=== PATIENT | male | born 1965 | race Two or more races ===

== ENCOUNTER 2023-04-19 08:06 | Emergency (ER) | payer MEDICAID ==
[~2023-04-19] VITALS: Ht 170.2 cm; Wt 121.1 kg
[2023-04-19 08:45] LABS: Basophils # (auto) 0 10 ^3/uL (0-0.2); Basophils % (auto) 0.4 % (0.0-2.0); Eosinophils # (auto) 0.5 10 ^3/uL (0-0.8); Eosinophils % (auto) 4.5 % (0.0-7.0); Hematocrit 46.6 % (41.0-53.0); Hemoglobin 15.4 g/dL (13.5-17.5); Lymphocytes % (auto) 37.4 % (10.0-50.0); Mean Corpuscular Hemoglobin 28.9 pg (28.0-32.0); Mean Corpuscular Hgb Conc. 33.1 g/dL (32.0-36.0); Mean Corpuscular Volume 87.4 fL (80.0-100.0); Monocytes # (auto) 0.6 10 ^3/uL (0-1.3); Monocytes % (auto) 6.1 % (0.0-12.0); Neutrophils # (auto) 5.5 10 ^3/uL (1.6-8.6); Neutrophils % (auto) 51.6 % (37.0-80.0); Nucleated Red Blood Cells % 0.3 %; Red Blood Cells 5.33 10^6/uL (4.5-5.90); Red Cell Distribution Width 13.3 % (11.8-14.3); White Blood Cell 10.6 10^3/uL (4.4-10.8)
[2023-04-19 08:48] LABS: Alanine Aminotransferase 32 U/L (7-40); Albumin 4.5 g/dL (3.2-4.8); Alkaline Phosphatase 76 U/L (46-116); Anion Gap 6 (5-15); Aspartate Aminotransferase 34 U/L (13-40); BUN/Creatinine Ratio 18.3 (10.0-20.0); Blood Urea Nitrogen 15 mg/dL (9-23); Calcium 9.6 mg/dL (8.5-10.1); Carbon Dioxide 26 mmol/L (20-30); Chloride 106 mmol/L (98-107); Glucose 137 mg/dL (74-106); Potassium 4.6 mmol/L (3.5-5.1); Sodium 138 mmol/L (136-145)
[2023-04-19 08:49] LABS: Bilirubin, Total 0.4 mg/dL (0.2-1.0); Total Protein 6.6 g/dL (5.7-8.2)
[2023-04-19 08:56] LABS: INR 1.01 (0.9-1.15); Partial Thromboplastin Time 27.4 SEC (24.5-34.5); Prothrombin Time 10.6 sec (9.3-11.8)
[2023-04-19] MEDS: IOHEXOL 350 MG/ML 100ML IJ ONE ×2 (10:33→10:56)
[2023-04-19] MEDS ORDERED: NAPR-1334 PO (12:03)
[2023-04-19 12:20] VITALS: BP 138/80; PULSE 75; RESP 18; TEMP 97.8; O2SAT 96
== END 2023-04-19 12:22 | disposition home or self-care (01) ==
LOC: ER 08:06
DX: R07.89 Other chest pain (principal); G89.29 Other chronic pain; M54.9 Dorsalgia, unspecified; F17.210 Nicotine dependence, cigarettes, uncomplicated; Z90.49 Acquired absence of other specified parts of digestive tract
CPT/HCPCS: 36415; 71045; 71275; 80053; 83880; 84484; 85025; 85379; 85610; 85730; 93005; 99285; Q9967

== ENCOUNTER 2024-03-29 11:09 | Emergency (ER) | payer MEDICAID ==
[~2024-03-29] VITALS: Ht 180.3 cm; Wt 122.0 kg
[~2024-03-29 11:09] MED LIST: NAPR-1335 PO
--- NOTE | 2024-03-29 11:25 | ED.PDOC ---
History of Present Illness HPI Comments 58-year-old male with PMHx Spinal Surgery brought in by EMS presents with a chief complaint of back pain. Patient states that he is currently experiencing 10/10 back pain at this time. Patient mentions that he was attempting to get up from his bed and that triggered the back pain. Patient mentions that his surgery was done by Dr. Ijeoma nichole 6 months ago. Patient reports that he has not had any physical therapy since having back surgery. Patient mentions that the pain radiates down his left leg and his at home pain medications are not helping with the pain. Time Seen by MD: 11:05 Primary Care Provider: ALBAN HERNANDEZ Reviewed Notes: Medications, Allergies Allergies: Coded Allergies: NO KNOWN ALLERGIES (Unverified , 05/30/15) Home Meds Active Scripts Naproxen Sodium (Naproxen) 220 Mg Tab, 220 MG PO BID for 7 Days, #14 TAB Prov:ARYAN PANIAGUA MD 04/19/23 Information Source: Patient, Emergency Med Personnel Mode of Arrival: EMS Severity: Moderate Timing: Hours Duration: Since onset Prehospital treatment: None Past Medical History PAST MEDICAL HISTORY: Denies Surgical History: Appendectomy, Hernia Repair Family History Family History: Unknown Social History Smoker: Cigarettes Alcohol: Denies ETOH Use Drugs: Denies Drug Use Lives In: Home Constitutional: denies: chills, diaphoresis, fatigue, fever, malaise, sweats, weakness, others EENTM: denies: blurred vision, double vision, ear bleeding, ear discharge, ear drainage, ear pain, ear ringing, eye pain, eye redness, hearing loss, mouth pain, mouth swelling, nasal discharge, nose bleeding, nose congestion, nose pain, photophobia, tearing, throat pain, throat swelling, voice changes, others Respiratory: denies: cough, hemoptysis, orthopnea, SOB at rest, shortness of breath, SOB with excertion, stridor, wheezing, others Cardiovascular: denies: chest pain, dizzy spells, diaphoresis, Dyspnea on exertion, edema, irregular heart beat, left arm pain, lightheadedness, palpitations, PND, syncope, others Gastrointestinal: denies: abdomen distended, abdominal pain, blood streaked bowels, constipated, diarrhea, dysphagia, difficulty swallowing, hematemesis, melena, nausea, poor appetite, poor fluid intake, rectal bleeding, rectal pain, vomiting, others Genitourinary: denies: burning, dysuria, flank pain, frequency, hematuria, incontinence, penile discharge, penile sore, pain, testicle pain, testicle swelling, urgency, others Neurological: denies: dizziness, fainting, headache, left sided numbness, left sided weakness, numbness, paresthesia, pre-existing deficit, right sided numbness, right sided weakness, seizure, speech problems, tingling, tremors, weakness, others Musculoskeletal: reports: back pain; denies: gout, joint pain, joint swelling, muscle pain, muscle stiffness, neck pain, others Integumetry: denies: bruises, change in color, change in hair/nails, dryness, laceration, lesions, lumps, rash, wounds, others Allergic/Immunocompromised: denies: Difficulty Healing, Frequent Infections, Hives, Itching, others Hematologic/Lymphatic: denies: anemia, blood clots, easy bleeding, easy bruising, swollen glands, others Endocrine: denies: excessive hunger, excessive sweating, excessive thirst, excessive urination, flushing, intolerance to cold, intolerance to heat, unexplained weight gain, unexplained weight loss, others Psychiatric: denies: anxiety, bipolar disorder, depression, hopeless, panic disorder, schizophrenia, sleepless, suicidal, others All Other Systems: Reviewed and Negative Physical Exam General Appearance: Mild Distress HEENT: Normal ENT Inspection, Pharynx Normal, TMs Normal Neck: Full Range of Motion, Non-Tender, Normal, Normal Inspection Respiratory: Chest Non-Tender, Lungs Clear, No Accessory Muscle Use, No Respiratory Distress, Normal Breath Sounds Cardiovascular: No Edema, No JVD, No Murmur, No Gallop, Normal Peripheral Pulses, Regular Rate/Rhythm Breast Exam: Deferred Gastrointestinal: No Organomegaly, Non Tender, No Pulsatile Mass, Normal Bowel Sounds, Soft Genitalia: Deferred Pelvic: Deferred Rectal: Deferred Extremities: No calf tenderness, Normal capillary refill, Normal inspection, Normal range of motion, Non-tender, No pedal edema Musculoskeletal : Location: Bilateral Extremity Location: Back Apperance: Limited ROM, Tenderness: Mild Neurologic: Alert, garage mechanic II-XII nml as Tested, No Motor Deficits, Normal Affect, Normal Mood, No Sensory Deficits Cerebellar Function: Normal Reflexes: Normal Skin: Dry, Normal Color, Warm Lymphatic: No Adenopathy Was a procedure done? Was a procedure done?: No Differential Dx Considerations may include: LS strain, radiculopathy X-Ray, Labs, Meds, VS Vital Signs Date Time Temp Pulse Resp B/P (MAP) Pulse Ox O2 Delivery O2 Flow Rate FiO2 03/29/24 11:27 98.0 93 24 137/88 (104) 100 Lumbar Spine X-Ray Impression: L6-S1 lumbar spinal hardware and disc spacer appear intact. No acute fracture or dislocation of the lumbar spine. At this time, the patient was being discharged The patient will follow up primary care doctor The patient will return to the emergency department's the condition worsens The patient will continue taking his medication for pain Images Reviewed?: Images reviewed and evaluated by me Time of 1ST Reevaluation: 11:35 Reevaluation 1ST: Unchanged Patient Education/Counseling: Diagnosis, Treatment, Prognosis, Need For Follow Up Family Education/Counseling: Diagnosis, Treatment, Prognosis, Need For Follow Up Departure 1 Departure Time of Disposition: 12:13 Impression: Primary Impression: Lumbar radiculopathy Disposition: 01 HOME / SELF CARE / HOMELESS Condition: Fair Discharged With: Self Critical Care Note Critical Care Time?: No Stability Stability form required: No Heart Score Heart Score: Heart Score Response (Comments) Value History N/A 0 EKG N/A 0 Age N/A 0 Risk Factors N/A 0 Troponin N/A 0 Total 0 I personally scribed for GABBY BLANCO MD ([email or web address]) on 03/29/24 at 11:25. Electronically submitted by Hal Moreno ([email or web address]). I personally scribed for GABBY BLANCO MD ([email or web address]) on 03/29/24 at 12:07. Electronically submitted by Hal Moreno ([email or web address]). GABBY BLANCO MD Mar 29, 2024 11:25
--- NOTE | 2024-03-29 11:55 | DVH ---
XY LUMBAR SPINE 3 VIEW, HISTORY: pain COMPARISON: None TECHNICAL DATA: Frontal and lateral views were obtained of the lumbar spine . FINDINGS: There are 6 lumbar type vertebral bodies. L6-S1 lumbar spinal hardware and disc spacer appear intact. Lumbar curvature is within normal limits. There is no spondylolisthesis. Vertebral body heights are maintained. Disk heights are normal. The facet joints appear normal. The sacroiliac joints are symmet luz elena. Paraspinal soft tissues are within normal limits. IMPRESSION: L6-S1 lumbar spinal hardware and disc spacer appear intact. No acute fracture or dislocation of the lumbar spine.
[2024-03-29 12:20] VITALS: TEMP 97.7; O2SAT 96
[2024-03-29] MEDS: ONDANSETRON HCL 4 MG/2 ML VIAL IV ONE (12:25)
[2024-03-29] MEDS: HYDROMORPHONE HCL 1 MG/ML INJ IV ONE (12:26)
[2024-03-29 12:56] VITALS: BP 147/93; PULSE 88; RESP 17
== END 2024-03-29 13:05 | disposition home or self-care (01) ==
LOC: EDBD 11:09 → ER 11:09
DX: M54.16 Radiculopathy, lumbar region (principal); F17.210 Nicotine dependence, cigarettes, uncomplicated; Z90.49 Acquired absence of other specified parts of digestive tract; Z98.890 Other specified postprocedural states
CPT/HCPCS: 72100; 96374; 96375; 99284; J1170; J2405